=== PATIENT | male | born 1960 | race African-American/Black ===

== ENCOUNTER 2016-07-22 12:18 | Emergency (ER) | payer MEDICAID ==
[~2016-07-22] VITALS: Ht 182.9 cm; Wt 91.0 kg
[2016-07-22] MEDS ORDERED: SODIUM CHLORIDE 0.9% 1,000 ML IV ONE (14:21)
[2016-07-22] MEDS ORDERED: ONDANSETRON HCL 4MG/2ML VIAL IV STA (14:21)
[2016-07-22] MEDS ORDERED: MORPHINE SULFATE 4 MG/ML CPJ (NOT FOR IM USE) IV STA (14:21)
[2016-07-22 14:58] LABS: PROTHROMBIN TIME 10.8 sec
[2016-07-22 15:02] LABS: BASOPHILS % 0.2 % (0.0-2.0); EOSINOPHILS % 3.1 % (0.0-5.0); HEMATOCRIT. 43.9 % (42.0-52.0); LYMPHOCYTES % 41.4 % (20.0-50.0); MEAN CORPUSCULAR VOLUME 87.5 fL (80.0-94.0); MEAN PLATELET VOLUME 8.8 fl (7.4-10.4); MONOCYTES % 9.2 % (2.0-8.0); NEUTROPHILS % 46.1 % (40.0-76.0); PLATELET 198 x1000/uL (130-400); RED BLOOD CELL COUNT 5.01 mill/uL (4.7-6.1); RED CELL DISTRIBUTION WIDTH 13.1 % (11.6-14.6)
[2016-07-22 15:08] LABS: CARBON DIOXIDE 27 mEq/L (21-32); CHLORIDE 104 mEq/L (98-107); CREATINE KINASE 120 IU/L (39-308); ETHANOL BLOOD < 10 mg/dL; TROPONIN I < 0.02 ng/mL (0.00-0.04)
[2016-07-22 15:33] LABS: CLARITY URINE CLEAR (CLEAR); COLOR URINE YELLOW (YELLOW); GLUCOSE URINE NEGATIVE (NEGATIVE); KETONES URINE NEGATIVE (NEGATIVE); LEUKOCYTE ESTERASE URINE NEGATIVE (NEGATIVE); NITRITE URINE NEGATIVE (NEGATIVE); OCCULT BLOOD URINE NEGATIVE (NEGATIVE); PH URINE 6.5 (4.5-8.0); PROTEIN URINE NEGATIVE (NEGATIVE); SPECIFIC GRAVITY URINE 1.024 (1.005-1.030)
[2016-07-22 15:47] LABS: *AMPHETAMINES SCREEN URINE NEGATIVE (NEGATIVE); *BARBITURATES SCREEN URINE NEGATIVE (NEGATIVE); *BENZODIAZEPINES SCREEN URINE NEGATIVE (NEGATIVE); *COCAINE SCREEN URINE NEGATIVE (NEGATIVE); CANNABINOID URINE SCREEN NEGATIVE (NEGATIVE); METHADONE URINE SCREEN NEGATIVE (NEGATIVE); OPIATES URINE SCREEN NEGATIVE (NEGATIVE); PHENCYCLIDINE URINE SCREEN NEGATIVE (NEGATIVE)
[2016-07-22] MEDS ORDERED: KETOROLAC 30MG/ML VIAL IV ONE (16:15)
[2016-07-22 16:56] VITALS: BP 127/78
== END 2016-07-22 16:57 | disposition home or self-care (01) ==
LOC: ER 12:24
DX: S16.1XXA Strain of muscle, fascia and tendon at neck level, initial encounter (principal); R56.9 Unspecified convulsions; I10 Essential (primary) hypertension; Z02.89 Encounter for other administrative examinations; Z86.73 Personal history of transient ischemic attack (TIA), and cerebral infarction without residual deficits; X58.XXXA Exposure to other specified factors, initial encounter; Y93.89 Activity, other specified; Y92.89 Other specified places as the place of occurrence of the external cause; Y99.8 Other external cause status
CPT/HCPCS: 36415; 70450; 71010; 72125; 73030; 80053; 80305; 81003; 82550; 84484; 85025; 85610; 93005; 96361; 96374; 96375; 99285; G0482; J2270; J2405; J7030; Z7610

== ENCOUNTER 2017-05-29 12:02 | Emergency (ER) | payer MEDICAID ==
[~2017-05-29] VITALS: Ht 177.8 cm; Wt 80.0 kg
[2017-05-29] MEDS ORDERED: SODIUM CHLORIDE 0.9% 1,000 ML IV ONE (12:43)
[2017-05-29] MEDS ORDERED: LORAZEPAM 2MG/ML CPJ IV STA (12:43)
[2017-05-29 13:27] LABS: CLARITY URINE CLEAR (CLEAR); COLOR URINE YELLOW (YELLOW); KETONES URINE 1+ (NEGATIVE); LEUKOCYTE ESTERASE URINE NEGATIVE (NEGATIVE); NITRITE URINE NEGATIVE (NEGATIVE); OCCULT BLOOD URINE NEGATIVE (NEGATIVE); PROTEIN URINE NEGATIVE (NEGATIVE); SPECIFIC GRAVITY URINE 1.027 (1.005-1.030)
[2017-05-29 13:40] LABS: *AMPHETAMINES SCREEN URINE PRESUMTIVE POSITIVE (NEGATIVE); *BARBITURATES SCREEN URINE NEGATIVE (NEGATIVE); *BENZODIAZEPINES SCREEN URINE NEGATIVE (NEGATIVE)
[2017-05-29 13:41] LABS: *COCAINE SCREEN URINE PRESUMTIVE POSITIVE (NEGATIVE); CANNABINOID URINE SCREEN PRESUMTIVE POSITIVE (NEGATIVE); METHADONE URINE SCREEN NEGATIVE (NEGATIVE); OPIATES URINE SCREEN NEGATIVE (NEGATIVE); PHENCYCLIDINE URINE SCREEN NEGATIVE (NEGATIVE)
[2017-05-29 14:55] LABS: BASOPHILS % 0.8 % (0.0-2.0); EOSINOPHILS % 1.9 % (0.0-5.0); HEMATOCRIT. 42.4 % (42.0-52.0); HEMOGLOBIN. 14.6 g/dL (14.0-18.0); LYMPHOCYTES % 44.1 % (20.0-50.0); MEAN CORPUSCULAR HEMOGLOBIN 30.7 pg (28.0-32.0); MEAN PLATELET VOLUME 8.3 fl (7.4-10.4); MONOCYTES % 10.1 % (2.0-8.0); NEUTROPHILS % 43.1 % (40.0-76.0); PLATELET 195 x1000/uL (130-400); RED BLOOD CELL COUNT 4.77 mill/uL (4.7-6.1); RED CELL DISTRIBUTION WIDTH 13.4 % (11.6-14.6)
[2017-05-29 14:57] LABS: CHLORIDE 107 mEq/L (98-107)
[2017-05-29 15:01] LABS: ETHANOL BLOOD < 10 mg/dL
[2017-05-30 12:59] VITALS: BP 102/60
== END 2017-05-30 13:40 | disposition home or self-care (01) ==
LOC: ER 12:02
DX: F15.10 Other stimulant abuse, uncomplicated (principal); F22 Delusional disorders; F14.10 Cocaine abuse, uncomplicated; F12.10 Cannabis abuse, uncomplicated; I10 Essential (primary) hypertension; R45.851 Suicidal ideations; M19.90 Unspecified osteoarthritis, unspecified site; F17.200 Nicotine dependence, unspecified, uncomplicated; R00.0 Tachycardia, unspecified; Z86.73 Personal history of transient ischemic attack (TIA), and cerebral infarction without residual deficits; Z59.0 Homelessness
CPT/HCPCS: 36415; 80053; 80305; 81003; 85025; 96361; 96374; 99284; G0482; J2060; J7030; Z7610

== ENCOUNTER 2017-06-11 16:43 | Emergency (ER) | payer MEDICAID ==
[~2017-06-11] VITALS: Ht 175.3 cm; Wt 70.0 kg
[2017-06-11 19:51] LABS: BASOPHILS % 1.3 % (0.0-2.0); EOSINOPHILS % 2.2 % (0.0-5.0); HEMATOCRIT. 42.1 % (42.0-52.0); HEMOGLOBIN. 14.2 g/dL (14.0-18.0); LYMPHOCYTES % 55.8 % (20.0-50.0); MEAN CORPUSCULAR HEMOGLOBIN 30.4 pg (28.0-32.0); MEAN CORPUSCULAR VOLUME 89.9 fL (80.0-94.0); MEAN PLATELET VOLUME 8.5 fl (7.4-10.4); MONOCYTES % 10.1 % (2.0-8.0); NEUTROPHILS % 30.6 % (40.0-76.0); PLATELET 201 x1000/uL (130-400); RED BLOOD CELL COUNT 4.68 mill/uL (4.7-6.1)
[2017-06-11 20:00] LABS: CHLORIDE 104 mEq/L (98-107)
[2017-06-11 22:20] LABS: ETHANOL BLOOD < 10 mg/dL
[2017-06-11 23:28] LABS: CLARITY URINE CLEAR (CLEAR); COLOR URINE DARK YELLOW (YELLOW); KETONES URINE 1+ (NEGATIVE); LEUKOCYTE ESTERASE URINE NEGATIVE (NEGATIVE); NITRITE URINE NEGATIVE (NEGATIVE); OCCULT BLOOD URINE NEGATIVE (NEGATIVE); PH URINE 5.5 (4.5-8.0); PROTEIN URINE TRACE (NEGATIVE); SPECIFIC GRAVITY URINE 1.033 (1.005-1.030)
[2017-06-11 23:58] LABS: *AMPHETAMINES SCREEN URINE PRESUMTIVE POSITIVE (NEGATIVE); *BARBITURATES SCREEN URINE NEGATIVE (NEGATIVE); *BENZODIAZEPINES SCREEN URINE NEGATIVE (NEGATIVE); *COCAINE SCREEN URINE NEGATIVE (NEGATIVE); CANNABINOID URINE SCREEN PRESUMTIVE POSITIVE (NEGATIVE); METHADONE URINE SCREEN NEGATIVE (NEGATIVE); PHENCYCLIDINE URINE SCREEN NEGATIVE (NEGATIVE)
[2017-06-12 00:25] LABS: OPIATES URINE SCREEN NEGATIVE (NEGATIVE)
[2017-06-12] MEDS ORDERED: POTASSIUM CHLORIDE 20MEQ TABLET SR PO ONE (00:45)
[2017-06-12 12:32] VITALS: BP 121/70
== END 2017-06-12 12:33 | disposition home or self-care (01) ==
LOC: ER 16:56
DX: R44.1 Visual hallucinations (principal); R44.0 Auditory hallucinations; E87.6 Hypokalemia; F12.90 Cannabis use, unspecified, uncomplicated; I10 Essential (primary) hypertension; Z86.73 Personal history of transient ischemic attack (TIA), and cerebral infarction without residual deficits
CPT/HCPCS: 36415; 80053; 80305; 80307; 80329; 81003; 85025; 99284; G0482

== ENCOUNTER 2017-06-13 03:39 | Emergency (ER) | payer MEDICAID ==
[~2017-06-13] VITALS: Ht 175.3 cm; Wt 93.6 kg
[2017-06-13] MEDS ORDERED: IBUPROFEN 600MG TABLET PO ONE (06:45)
[2017-06-13 07:05] LABS: BASOPHILS % 0.4 % (0.0-2.0); EOSINOPHILS % 5.6 % (0.0-5.0); HEMATOCRIT. 44.1 % (42.0-52.0); HEMOGLOBIN. 15.3 g/dL (14.0-18.0); LYMPHOCYTES % 55.1 % (20.0-50.0); MEAN CORPUSCULAR HEMOGLOBIN 31.4 pg (28.0-32.0); MEAN CORPUSCULAR VOLUME 90.5 fL (80.0-94.0); MEAN PLATELET VOLUME 8.7 fl (7.4-10.4); MONOCYTES % 11.9 % (2.0-8.0); PLATELET 206 x1000/uL (130-400); RED BLOOD CELL COUNT 4.87 mill/uL (4.7-6.1); RED CELL DISTRIBUTION WIDTH 13.5 % (11.6-14.6)
[2017-06-13 07:11] LABS: CHLORIDE 106 mEq/L (98-107)
[2017-06-13 07:15] LABS: ETHANOL BLOOD < 10 mg/dL
[2017-06-13 08:25] VITALS: BP 116/78
== END 2017-06-13 08:28 | disposition home or self-care (01) ==
LOC: ER 03:39
DX: R56.9 Unspecified convulsions (principal); F17.200 Nicotine dependence, unspecified, uncomplicated; M19.90 Unspecified osteoarthritis, unspecified site
CPT/HCPCS: 36415; 73130; 80053; 85025; 99285; G0482; Z7610

== ENCOUNTER → 2021-01-18 | Emergency (ER) | payer MEDICAID, OTHER ==
[~2021-01-18] VITALS: Ht 182.9 cm; Wt 100.0 kg
[2021-01-18 13:23] LABS: CLARITY URINE CLEAR (CLEAR); COLOR URINE YELLOW (YELLOW); KETONES URINE NEGATIVE (NEGATIVE); LEUKOCYTE ESTERASE URINE NEGATIVE (NEGATIVE); NITRITE URINE NEGATIVE (NEGATIVE); OCCULT BLOOD URINE NEGATIVE (NEGATIVE); PH URINE 5.5 (4.5-8.0); PROTEIN URINE NEGATIVE (NEGATIVE); SPECIFIC GRAVITY URINE 1.026 (1.005-1.030)
[2021-01-18 13:33] LABS: *BARBITURATES SCREEN URINE NEGATIVE (NEGATIVE); *BENZODIAZEPINES SCREEN URINE NEGATIVE (NEGATIVE); *COCAINE SCREEN URINE NEGATIVE (NEGATIVE)
[2021-01-18 13:34] LABS: *AMPHETAMINES SCREEN URINE PRESUMTIVE POSITIVE (NEGATIVE); METHADONE URINE SCREEN NEGATIVE (NEGATIVE); OPIATES URINE SCREEN NEGATIVE (NEGATIVE)
[2021-01-18 13:35] LABS: CANNABINOID URINE SCREEN PRESUMTIVE POSITIVE (NEGATIVE); PHENCYCLIDINE URINE SCREEN PRESUMTIVE POSITIVE (NEGATIVE)
[2021-01-18 14:30] LABS: BASOPHILS % 0.8 % (0.0-2.0); EOSINOPHILS % 1.9 % (0.0-5.0); HEMATOCRIT. 48.1 % (42.0-52.0); HEMOGLOBIN. 15.9 g/dL (14.0-18.0); LYMPHOCYTES % 42.8 % (20.0-50.0); MEAN CORPUSCULAR HEMOGLOBIN 29.1 pg (28.0-32.0); MEAN CORPUSCULAR VOLUME 88.4 fL (80.0-94.0); MEAN PLATELET VOLUME 8.5 fl (7.4-10.4); MONOCYTES % 9.6 % (2.0-8.0); NEUTROPHILS % 44.9 % (40.0-76.0); PLATELET 245 x1000/uL (130-400); RED BLOOD CELL COUNT 5.44 mill/uL (4.7-6.1); RED CELL DISTRIBUTION WIDTH 12.9 % (11.6-14.6)
[2021-01-18 14:36] LABS: CHLORIDE 101 mEq/L (98-107)
[2021-01-18 14:40] LABS: ETHANOL BLOOD < 10 mg/dL
[2021-01-18 16:18] VITALS: BP 144/80
== END ==
LOC: ER 12:08
DX: T43.621A Poisoning by amphetamines, accidental (unintentional), initial encounter (principal); Y92.89 Other specified places as the place of occurrence of the external cause; F12.10 Cannabis abuse, uncomplicated
CPT/HCPCS: 36415; 80053; 80305; 80307; 80320; 80329; 81003; 85025; 99283; G0480

== ENCOUNTER 2021-05-31 12:18 | Emergency (ER) | payer OTHER ==
[~2021-05-31] VITALS: Ht 175.3 cm; Wt 94.0 kg
[2021-05-31] MEDS ORDERED: PREDNISONE 20MG TABLET PO ONE (12:45)
[2021-05-31] MEDS ORDERED: PENICILLIN G BENZATHINE 2,400,000 UNITS/4ML SYR IM ONE (12:45)
[2021-05-31] MEDS ORDERED: DIPHENHYDRAMINE 25MG CAPSULE PO ONE (12:45)
[2021-05-31] MEDS ORDERED: P20 MT (12:54)
[2021-05-31] MEDS ORDERED: DIPH25CA83 MT (12:54)
[2021-05-31 13:40] VITALS: BP 132/86
== END 2021-05-31 22:46 | disposition home or self-care (01) ==
LOC: ER 12:27
DX: R21 Rash and other nonspecific skin eruption (principal); F12.10 Cannabis abuse, uncomplicated; F15.10 Other stimulant abuse, uncomplicated
CPT/HCPCS: 96372; 99283; J0561; J7512; Q0163

== ENCOUNTER 2021-08-25 19:57 | Emergency (ER) | payer OTHER ==
[~2021-08-25] VITALS: Ht 175.3 cm; Wt 96.0 kg
[~2021-08-25 19:57] MED LIST: DIPH25CA83 MT; P20 MT
[2021-08-25 20:07] VITALS: BP 125/90
== END 2021-08-25 22:23 | disposition home or self-care (01) ==
LOC: ER 19:57
DX: Z20.822 Contact with and (suspected) exposure to COVID-19 (principal); F12.10 Cannabis abuse, uncomplicated; F15.10 Other stimulant abuse, uncomplicated; F16.129 Hallucinogen abuse with intoxication, unspecified; Z98.890 Other specified postprocedural states
CPT/HCPCS: 87426; 87804; 93005; 99284

== ENCOUNTER 2022-08-28 18:49 | Emergency (ER) | payer MEDICAID, OTHER ==
[~2022-08-28] VITALS: Ht 175.3 cm; Wt 88.0 kg
[2022-08-28 18:51] VITALS: BP 143/81; PULSE 99; RESP 18; TEMP 98.3; O2SAT 98
== END 2022-08-28 23:47 | disposition left against medical advice (07) ==
LOC: ER 18:49
DX: Z53.21 Procedure and treatment not carried out due to patient leaving prior to being seen by health care provider (principal)
CPT/HCPCS: 99281

== ENCOUNTER 2022-10-04 02:40 | Emergency (ER) | payer OTHER ==
[~2022-10-04] VITALS: Ht 175.3 cm; Wt 92.1 kg
[2022-10-04 02:45] VITALS: O2SAT 100
[2022-10-04] MEDS ORDERED: KETOROLAC 30MG/ML VIAL IV STA (04:20)
[2022-10-04] MEDS ORDERED: VANCOMYCIN 1G PREMIX 200 ML IV ONE (04:30)
[2022-10-04] MEDS ORDERED: PIPERACILLIN/TAZ 3.375G PREMIX 50 ML IV ONE (04:30)
[2022-10-04 04:41] LABS: BASOPHILS % 0.7 % (0.0-2.0); EOSINOPHILS % 5.4 % (0.0-5.0); HEMATOCRIT. 42.1 % (42.0-52.0); LYMPHOCYTES % 32.2 % (20.0-50.0); MEAN CORPUSCULAR HEMOGLOBIN 30.3 pg (28.0-32.0); MEAN CORPUSCULAR HGB CONC 33.2 g/dL (31.0-37.0); MEAN CORPUSCULAR VOLUME 91.2 fL (80.0-94.0); MEAN PLATELET VOLUME 7.8 fl (7.4-10.4); MONOCYTES % 12.2 % (2.0-8.0); NEUTROPHILS % 49.5 % (40.0-76.0); PLATELET 260 x1000/uL (130-400); RED BLOOD CELL COUNT 4.62 mill/uL (4.7-6.1); RED CELL DISTRIBUTION WIDTH 13.5 % (11.6-14.6); WHITE BLOOD COUNT 5.9 x1000/uL (4.5-11.0)
[2022-10-04 04:45] VITALS: BP 131/81; PULSE 78; RESP 18; TEMP 98
[2022-10-04 04:50] LABS: CALCIUM 8.4 mg/dL (8.5-10.1); CHLORIDE 108 mEq/L (98-107); INDEX HEMOLYSI 1 (1-3); INDEX ICTERIC 1 (1-4); INDEX LIPEMIC 1 (1-3); POTASSIUM 3.8 mEq/L (3.5-5.1); SODIUM 136 mEq/L (136-145)
[2022-10-04 04:54] LABS: CARBON DIOXIDE 25 mEq/L (21-32); CREATININE 0.9 mg/dL (0.6-1.3); GLUCOSE 104 mg/dL (70-105); UREA NITROGEN BLOOD 9 mg/dL (7-21)
[2022-10-04] MEDS ORDERED: IBUP-2029 MT (05:40)
[2022-10-04] MEDS ORDERED: AMOX1TAB16 MT (05:40)
== END 2022-10-04 06:59 | disposition home or self-care (01) ==
LOC: ER 02:48
DX: L03.012 Cellulitis of left finger (principal); F15.10 Other stimulant abuse, uncomplicated; F12.10 Cannabis abuse, uncomplicated; F16.10 Hallucinogen abuse, uncomplicated; I10 Essential (primary) hypertension
CPT/HCPCS: 99284; 96365; 96367; 96375; 80048; 83605; 85025; 87040; 36415; 73130; J1885; J2543; J3370

== ENCOUNTER 2022-12-06 20:47 | Emergency (ER) | payer OTHER ==
[~2022-12-06] VITALS: Ht 175.3 cm; Wt 96.0 kg
[~2022-12-06 20:47] MED LIST changes: +AMOX1TAB16 MT; +IBUP-2029 MT
[2022-12-06 21:34] VITALS: BP 121/70; O2SAT 100
[2022-12-06] MEDS ORDERED: CEPH500T MT (23:36)
[2022-12-06] MEDS ORDERED: CETI10CA11 MT (23:36)
[2022-12-06] MEDS ORDERED: HYDR453.4 TP (23:36)
[2022-12-07 00:19] VITALS: PULSE 81; RESP 18; TEMP 98.1
== END 2022-12-07 00:20 | disposition home or self-care (01) ==
LOC: ER 20:47
DX: L30.9 Dermatitis, unspecified (principal); L03.116 Cellulitis of left lower limb; L03.115 Cellulitis of right lower limb; I10 Essential (primary) hypertension; F12.10 Cannabis abuse, uncomplicated; F15.10 Other stimulant abuse, uncomplicated; Z79.899 Other long term (current) drug therapy
CPT/HCPCS: 99283

== ENCOUNTER 2023-03-08 18:32 | Emergency (ER) | payer OTHER ==
[~2023-03-08] VITALS: Ht 175.3 cm; Wt 68.0 kg
[~2023-03-08 18:32] MED LIST changes: +AMLO10TA80 MT; +ASCO500C15 MT; +CEPH500T MT; +CETI10CA11 MT; +FERR324T4 MT; +HYDR453.4 TP; +KEPP500 MT; -P20 MT; +QUET50TA23 MT
[2023-03-08 18:35] VITALS: BP 110/64; PULSE 89; RESP 16; TEMP 97.4; O2SAT 98
[2023-03-08] MEDS ORDERED: SODIUM CHLORIDE 0.9% 1,000 ML IV ONE (20:15)
[2023-03-08] MEDS ORDERED: ACET-2708 MT (22:43)
[2023-03-08] MEDS ORDERED: LIDOCAINE 5% PATCH TOP ONE (22:45)
[2023-03-08] MEDS ORDERED: ACETAMINOPHEN 325MG TABLET PO ONE (22:45)
== END 2023-03-08 23:01 | disposition home or self-care (01) ==
LOC: ER 18:32
DX: M54.2 Cervicalgia (principal); M54.50 Low back pain, unspecified; F12.90 Cannabis use, unspecified, uncomplicated; F15.90 Other stimulant use, unspecified, uncomplicated
CPT/HCPCS: 99283; 71045; J7030

== ENCOUNTER 2023-03-09 13:43 | Emergency (ER) | payer OTHER ==
[~2023-03-09] VITALS: Ht 175.3 cm; Wt 54.4 kg
[~2023-03-09 13:43] MED LIST changes: +ACET-2708 MT
[2023-03-09 14:02] VITALS: BP 188/66; PULSE 106; RESP 16; TEMP 98.2; O2SAT 100
[2023-03-09] MEDS ORDERED: AZITHROMYCIN 500MG/250ML 250 ML IV ONE (17:30)
[2023-03-09] MEDS ORDERED: SODIUM CHLORIDE 0.9% 1000ML BAG (SEPSIS BOLUS) IV ONE (17:30)
[2023-03-09] MEDS ORDERED: CEFTRIAXONE 1GM PREMIX 50 ML IV ONE (17:30)
[2023-03-09] MEDS ORDERED: HYDROCODONE/ACETAMINOPHEN 5/325MG TABLET PO ONE (17:30)
[2023-03-09 18:14] LABS: BASOPHILS % 0.5 % (0.0-2.0); EOSINOPHILS % 0.2 % (0.0-5.0); HEMATOCRIT. 37.2 % (42.0-52.0); HEMOGLOBIN. 12.1 g/dL (14.0-18.0); MEAN CORPUSCULAR HEMOGLOBIN 28.9 pg (28.0-32.0); MEAN CORPUSCULAR HGB CONC 32.5 g/dL (31.0-37.0); MEAN CORPUSCULAR VOLUME 88.8 fL (80.0-94.0); MEAN PLATELET VOLUME 7.4 fl (7.4-10.4); MONOCYTES % 12.2 % (2.0-8.0); NEUTROPHILS % 44.1 % (40.0-76.0); PLATELET 370 x1000/uL (130-400); RED BLOOD CELL COUNT 4.19 mill/uL (4.7-6.1); RED CELL DISTRIBUTION WIDTH 13.9 % (11.6-14.6); WHITE BLOOD COUNT 8.4 x1000/uL (4.5-11.0)
[2023-03-09 18:26] LABS: ALANINE AMINOTRANSFERASE 121 IU/L (10-49); ALBUMIN 3.6 g/dL (3.2-4.8); ASPARTATE AMINOTRANSFERASE 89 IU/L (<34); BILIRUBIN TOTAL 0.9 mg/dL (0.1-1.0); CALCIUM 9.2 mg/dL (8.7-10.4); CARBON DIOXIDE 29 mEq/L (21-32); CHLORIDE 100 mEq/L (98-107); CREATININE 0.8 mg/dL (0.6-1.3); GLUCOSE 107 mg/dL (70-105); POTASSIUM 4.1 mEq/L (3.5-5.1); PROTEIN TOTAL 8.1 g/dL (6.0-8.3); SODIUM 135 mEq/L (136-145); TROPONIN I HIGH SENSITIVITY 5 ng/L (3.0-53); UREA NITROGEN BLOOD 19 mg/dL (9-23)
== END 2023-03-09 18:24 | disposition left against medical advice (07) ==
LOC: ER 13:43
DX: R91.8 Other nonspecific abnormal finding of lung field (principal); G89.29 Other chronic pain; M54.9 Dorsalgia, unspecified; Z79.899 Other long term (current) drug therapy
CPT/HCPCS: 99284; 71045; 80053; 83880; 83605; 85025; 87040; 84484; 36415; 84145; J7030

== ENCOUNTER 2023-03-12 06:44 | Emergency (ER) | payer OTHER ==
[~2023-03-12] VITALS: Ht 175.3 cm; Wt 65.0 kg
[2023-03-12 06:46] VITALS: O2SAT 95
[2023-03-12] MEDS ORDERED: PREDNISONE 20MG TABLET PO STA (06:57)
[2023-03-12 07:29] LABS: BASOPHILS % 0.6 % (0.0-2.0); EOSINOPHILS % 0.2 % (0.0-5.0); HEMATOCRIT. 36.4 % (42.0-52.0); HEMOGLOBIN. 11.7 g/dL (14.0-18.0); LYMPHOCYTES % 36.8 % (20.0-50.0); MEAN CORPUSCULAR HEMOGLOBIN 28.4 pg (28.0-32.0); MEAN CORPUSCULAR HGB CONC 32.2 g/dL (31.0-37.0); MEAN CORPUSCULAR VOLUME 88.3 fL (80.0-94.0); MEAN PLATELET VOLUME 7.1 fl (7.4-10.4); MONOCYTES % 11.5 % (2.0-8.0); NEUTROPHILS % 50.9 % (40.0-76.0); PLATELET 459 x1000/uL (130-400); RED BLOOD CELL COUNT 4.12 mill/uL (4.7-6.1); RED CELL DISTRIBUTION WIDTH 13.9 % (11.6-14.6); WHITE BLOOD COUNT 8.4 x1000/uL (4.5-11.0)
[2023-03-12 07:43] LABS: ALANINE AMINOTRANSFERASE 83 IU/L (10-49); ALBUMIN 3.5 g/dL (3.2-4.8); ASPARTATE AMINOTRANSFERASE 77 IU/L (<34); CALCIUM 9.1 mg/dL (8.7-10.4); CARBON DIOXIDE 27 mEq/L (21-32); CHLORIDE 98 mEq/L (98-107); CREATININE 0.8 mg/dL (0.6-1.3); GLUCOSE 158 mg/dL (70-105); PROTEIN TOTAL 7.9 g/dL (6.0-8.3); SODIUM 134 mEq/L (136-145); TROPONIN I HIGH SENSITIVITY 4 ng/L (3.0-53); UREA NITROGEN BLOOD 15 mg/dL (9-23)
[2023-03-12] MEDS ORDERED: LEVO750T68 MT (08:24)
[2023-03-12] MEDS ORDERED: KETOROLAC 30MG/ML VIAL IV ONE (08:30)
[2023-03-12] MEDS ORDERED: LEVOFLOXACIN 750MG PREMIX 150 ML IV ONE (08:30)
[2023-03-12 09:31] VITALS: BP 167/63; PULSE 98; RESP 19; TEMP 98.1
== END 2023-03-12 09:45 | disposition home or self-care (01) ==
LOC: ER 06:54
DX: J18.9 Pneumonia, unspecified organism (principal); R06.00 Dyspnea, unspecified; F12.10 Cannabis abuse, uncomplicated; F15.10 Other stimulant abuse, uncomplicated; F16.10 Hallucinogen abuse, uncomplicated; Z79.899 Other long term (current) drug therapy
CPT/HCPCS: 80053; 83880; 85025; 84484; 36415; 71045; 93005; 96374; 96375; 99291; J7512; J1885; J1956; Z7610 ×3

== ENCOUNTER 2023-03-12 22:37 | Emergency (ER) | payer OTHER ==
[~2023-03-12] VITALS: Ht 182.9 cm; Wt 95.0 kg
[~2023-03-12 22:37] MED LIST changes: +LEVO750T68 MT
[2023-03-12 22:46] VITALS: O2SAT 100
[2023-03-12] MEDS ORDERED: CEFTRIAXONE 2GM/50ML (ADDEASE) 50 ML IV ONE (23:15)
[2023-03-12] MEDS ORDERED: AZITHROMYCIN 500MG/250ML 250 ML IV ONE (23:15)
[2023-03-12 23:21] LABS: BASOPHILS % 0.2 % (0.0-2.0); HEMATOCRIT. 34.5 % (42.0-52.0); HEMOGLOBIN. 11.2 g/dL (14.0-18.0); LYMPHOCYTES % 32.7 % (20.0-50.0); MEAN CORPUSCULAR HEMOGLOBIN 28.7 pg (28.0-32.0); MEAN CORPUSCULAR HGB CONC 32.4 g/dL (31.0-37.0); MEAN CORPUSCULAR VOLUME 88.6 fL (80.0-94.0); MEAN PLATELET VOLUME 7.2 fl (7.4-10.4); MONOCYTES % 8.5 % (2.0-8.0); NEUTROPHILS % 58.6 % (40.0-76.0); PLATELET 453 x1000/uL (130-400); RED BLOOD CELL COUNT 3.89 mill/uL (4.7-6.1); RED CELL DISTRIBUTION WIDTH 13.9 % (11.6-14.6); WHITE BLOOD COUNT 6.6 x1000/uL (4.5-11.0)
[2023-03-12 23:37] LABS: ALANINE AMINOTRANSFERASE 74 IU/L (10-49); ALBUMIN 3.2 g/dL (3.2-4.8); ASPARTATE AMINOTRANSFERASE 61 IU/L (<34); BILIRUBIN TOTAL 0.6 mg/dL (0.1-1.0); CALCIUM 8.6 mg/dL (8.7-10.4); CARBON DIOXIDE 22 mEq/L (21-32); CHLORIDE 101 mEq/L (98-107); CREATININE 0.9 mg/dL (0.6-1.3); GLUCOSE 231 mg/dL (70-105); POTASSIUM 4.2 mEq/L (3.5-5.1); PROTEIN TOTAL 7.5 g/dL (6.0-8.3); SODIUM 134 mEq/L (136-145); UREA NITROGEN BLOOD 25 mg/dL (9-23)
[2023-03-13] MEDS ORDERED: ACETAMINOPHEN 325MG TABLET PO STA (00:07)
[2023-03-13] MEDS ORDERED: SODIUM CHLORIDE 0.9% 1000ML BAG (SEPSIS BOLUS) IV ONE (00:15)
[2023-03-13 02:30] VITALS: PULSE 87
[2023-03-13 02:48] LABS: CLARITY URINE CLEAR (CLEAR); COLOR URINE DARK YELLOW (YELLOW); GLUCOSE URINE NEGATIVE (NEGATIVE); KETONES URINE TRACE (NEGATIVE); LEUKOCYTE ESTERASE URINE NEGATIVE (NEGATIVE); NITRITE URINE NEGATIVE (NEGATIVE); OCCULT BLOOD URINE NEGATIVE (NEGATIVE); PROTEIN URINE 1+ (NEGATIVE); SPECIFIC GRAVITY URINE 1.031 (1.005-1.030)
[2023-03-13 03:47] LABS: BACTERIA URINE NONE SEEN; HYALINE CASTS URINE 0-5 /lpf; RBC URINE NONE SEEN /hpf (0-2); SQUAMOUS EPITHELIAL CELL URINE NONE SEEN /lpf (RARE/1+); WBC URINE 0-2 /hpf (0-2)
[2023-03-13 07:03] VITALS: BP 96/65; RESP 18; TEMP 98.6
== END 2023-03-13 07:25 | disposition short-term general hospital (02) ==
LOC: ER 22:37
DX: J18.8 Other pneumonia, unspecified organism (principal); E87.20 Acidosis, unspecified; E86.0 Dehydration; N17.9 Acute kidney failure, unspecified; R42 Dizziness and giddiness; F12.90 Cannabis use, unspecified, uncomplicated; F15.90 Other stimulant use, unspecified, uncomplicated; Z59.00 Homelessness unspecified; Z20.822 Contact with and (suspected) exposure to COVID-19
CPT/HCPCS: 80053; 80320; 83605 ×2; 85025; 87040; 36415; 96368; 96365; 99285; 81003; 87420; 87086; 87804 ×2; 96361; 87426; J0456; J0696; J7030; G0480

== ENCOUNTER 2023-03-18 05:39 | Emergency (ER) | payer OTHER ==
[~2023-03-18] VITALS: Ht 182.9 cm; Wt 79.0 kg
[2023-03-18] MEDS ORDERED: ACETAMINOPHEN 325MG TABLET PO ONE (05:45)
[2023-03-18 06:02] VITALS: BP 126/88; PULSE 82; RESP 18; TEMP 98.6; O2SAT 99
[2023-03-18] MEDS ORDERED: TOPUD PO (06:45)
[2023-03-19] MEDS ORDERED: NAPR-681 MT (13:42)
== END 2023-03-18 07:00 | disposition home or self-care (01) ==
LOC: ER 05:59
DX: S09.90XA Unspecified injury of head, initial encounter (principal); M54.50 Low back pain, unspecified; F12.10 Cannabis abuse, uncomplicated; F15.10 Other stimulant abuse, uncomplicated; F16.10 Hallucinogen abuse, uncomplicated; E11.9 Type 2 diabetes mellitus without complications; I10 Essential (primary) hypertension; Z79.899 Other long term (current) drug therapy; X58.XXXA Exposure to other specified factors, initial encounter; Y93.89 Activity, other specified; Y92.89 Other specified places as the place of occurrence of the external cause; Y99.8 Other external cause status
CPT/HCPCS: 99283

== ENCOUNTER 2023-03-18 12:51 | Emergency (ER) | payer OTHER ==
[~2023-03-18] VITALS: Ht 175.3 cm; Wt 69.0 kg
[~2023-03-18 12:51] MED LIST changes: +TOPUD PO
[2023-03-18 13:01] VITALS: PULSE 120
[2023-03-18 13:22] VITALS: BP 104/57; RESP 18; TEMP 98.9; O2SAT 97
[2023-03-19] MEDS ORDERED: NAPR-681 MT (13:42)
== END 2023-03-18 21:52 | disposition left against medical advice (07) ==
LOC: ER 12:51
DX: R51.9 Headache, unspecified (principal); Z53.21 Procedure and treatment not carried out due to patient leaving prior to being seen by health care provider
CPT/HCPCS: 99281

== ENCOUNTER 2023-03-19 09:22 | Emergency (ER) | payer OTHER ==
[~2023-03-19] VITALS: Ht 165.1 cm; Wt 80.0 kg
[2023-03-19 09:29] VITALS: O2SAT 99
[2023-03-19 10:15] VITALS: BP 113/64; PULSE 68; RESP 18; TEMP 96.9
[2023-03-19] MEDS ORDERED: ACETAMINOPHEN 325MG TABLET PO ONE (10:15)
[2023-03-19] MEDS ORDERED: KETOROLAC 60MG/2ML VIAL IM ONE (10:15)
[2023-03-19] MEDS ORDERED: NAPR-681 MT (13:42)
== END 2023-03-19 14:05 | disposition home or self-care (01) ==
LOC: ER 09:22
DX: M54.9 Dorsalgia, unspecified (principal); F12.10 Cannabis abuse, uncomplicated; F15.10 Other stimulant abuse, uncomplicated; F16.10 Hallucinogen abuse, uncomplicated
CPT/HCPCS: 99283; 72170; 96372; J1885

== ENCOUNTER 2023-04-07 13:38 | Emergency (ER) | payer OTHER ==
[~2023-04-07] VITALS: Ht 175.3 cm; Wt 69.0 kg
[~2023-04-07 13:38] MED LIST changes: +NAPR-681 MT
[2023-04-07 13:45] VITALS: O2SAT 98
[2023-04-07] MEDS: KETOROLAC 30MG/ML VIAL IV ONE (14:38)
[2023-04-07 15:03] LABS: BASOPHILS % 0.8 % (0.0-2.0); EOSINOPHILS % 1.9 % (0.0-5.0); HEMATOCRIT. 35.2 % (42.0-52.0); HEMOGLOBIN. 11.8 g/dL (14.0-18.0); LYMPHOCYTES % 42.3 % (20.0-50.0); MEAN CORPUSCULAR HEMOGLOBIN 28.7 pg (28.0-32.0); MEAN CORPUSCULAR HGB CONC 33.5 g/dL (31.0-37.0); MEAN CORPUSCULAR VOLUME 85.8 fL (80.0-94.0); MONOCYTES % 11.5 % (2.0-8.0); NEUTROPHILS % 43.5 % (40.0-76.0); PLATELET 399 x1000/uL (130-400); RED CELL DISTRIBUTION WIDTH 16.3 % (11.6-14.6); WHITE BLOOD COUNT 6.7 x1000/uL (4.5-11.0)
[2023-04-07 15:10] LABS: ALANINE AMINOTRANSFERASE 80 IU/L (10-49); ALBUMIN 4.2 g/dL (3.2-4.8); ASPARTATE AMINOTRANSFERASE 108 IU/L (<34); BILIRUBIN TOTAL 0.6 mg/dL (0.1-1.0); CARBON DIOXIDE 26 mEq/L (21-32); CHLORIDE 103 mEq/L (98-107); CREATININE 0.9 mg/dL (0.6-1.3); GLUCOSE 97 mg/dL (70-105); POTASSIUM 3.8 mEq/L (3.5-5.1); PROTEIN TOTAL 8.7 g/dL (6.0-8.3); SODIUM 136 mEq/L (136-145); UREA NITROGEN BLOOD 11 mg/dL (9-23)
[2023-04-07 15:42] LABS: ERYTHROCYTE SEDIMENTATION RATE 80 mm/hr (0-20)
[2023-04-07] MEDS ORDERED: IOHEXOL-300 100 ML BOTTLE ONE (19:42)
[2023-04-07] MEDS: PIPERACILLIN/TAZO 3.375G/50ML 50 ML IV NR (21:20)
[2023-04-07] MEDS: VANCOMYCIN 1G PREMIX 200 ML IV NR (21:37)
[2023-04-07] MEDS ORDERED: PIPERACILLIN/TAZO 3.375G/50ML 50 ML IV SCH (22:00)
[2023-04-08 00:58] VITALS: BP 118/70; PULSE 91; RESP 18; TEMP 98.2
[2023-04-08] MEDS ORDERED: PIPERACILLIN/TAZO 3.375G/50ML 50 ML IV SCH (06:00)
== END 2023-04-08 01:18 | disposition short-term general hospital (02) ==
LOC: ER 13:38
DX: M46.46 Discitis, unspecified, lumbar region (principal); M46.26 Osteomyelitis of vertebra, lumbar region; A18.01 Tuberculosis of spine; F12.10 Cannabis abuse, uncomplicated; F15.10 Other stimulant abuse, uncomplicated; Z79.899 Other long term (current) drug therapy
CPT/HCPCS: 80053; 83605; 85025; 85651; 87040; 36415; 72132; 96368; 96365; 96366; 96375; 99291; Q9967; J1885; J2543; J3370; Z7610 ×3

== ENCOUNTER 2023-08-29 16:23 | Emergency (ER) | payer OTHER ==
[~2023-08-29] VITALS: Ht 177.8 cm; Wt 90.0 kg
[2023-08-29 16:27] VITALS: BP 129/75; PULSE 83; RESP 20; TEMP 98.7; O2SAT 98
[2023-08-29] MEDS ORDERED: P50 MT (16:53)
[2023-08-29] MEDS ORDERED: TRIA60LO17 TP (16:53)
== END 2023-08-29 17:06 | disposition home or self-care (01) ==
LOC: ER 16:23
DX: R21 Rash and other nonspecific skin eruption (principal); Z79.899 Other long term (current) drug therapy; Z98.890 Other specified postprocedural states
CPT/HCPCS: 99283

== ENCOUNTER 2024-01-20 07:30 | Emergency (ER) | payer OTHER ==
[~2024-01-20] VITALS: Ht 175.3 cm; Wt 86.0 kg
[~2024-01-20 07:30] MED LIST changes: +ASCO500C14 MT; -ASCO500C15 MT; +P50 MT; +TRIA60LO17 TP
[2024-01-20 07:44] VITALS: O2SAT 100
[2024-01-20] MEDS ORDERED: MUPI15CR11 TP (08:24)
[2024-01-20] MEDS ORDERED: AMOX1TAB16 MT (08:24)
[2024-01-20 08:31] VITALS: BP 125/74; PULSE 77; RESP 16; TEMP 36.89184; O2SAT 100
[2024-01-20] MEDS: AMOXICILLIN/POTASSIUM CLAVULANATE 875/125MG TAB PO ONE (08:37)
== END 2024-01-20 08:53 | disposition home or self-care (01) ==
LOC: ER 07:30
DX: R21 Rash and other nonspecific skin eruption (principal); Z79.899 Other long term (current) drug therapy
CPT/HCPCS: 99283

== ENCOUNTER 2024-02-14 12:24 | Emergency (ER) | payer OTHER ==
[~2024-02-14] VITALS: Ht 175.3 cm; Wt 86.0 kg
[~2024-02-14 12:24] MED LIST changes: +MUPI15CR11 TP
[2024-02-14 12:56] VITALS: O2SAT 98
[2024-02-14] MEDS ORDERED: TRIA60LO17 TP (15:30)
[2024-02-14] MEDS ORDERED: HYDR453.3 TP (15:30)
[2024-02-14] MEDS: HYDROCORTISONE 1% OINT 28.35GM TOP STA (16:20)
[2024-02-14 16:21] VITALS: BP 137/78; PULSE 71; RESP 18; TEMP 37.05852; O2SAT 98
== END 2024-02-14 16:23 | disposition home or self-care (01) ==
LOC: ER 12:24
DX: L30.9 Dermatitis, unspecified (principal); Z76.0 Encounter for issue of repeat prescription; Z79.899 Other long term (current) drug therapy
CPT/HCPCS: 99282

== ENCOUNTER 2024-03-12 09:32 | Emergency (ER) | payer OTHER ==
[~2024-03-12] VITALS: Ht 175.3 cm; Wt 91.0 kg
[~2024-03-12 09:32] MED LIST changes: +HYDR453.3 TP
[2024-03-12 09:42] VITALS: BP 131/75; PULSE 95; RESP 16; TEMP 98.4; O2SAT 98
[2024-03-12] MEDS ORDERED: CEPH500T MT (10:43)
[2024-03-12] MEDS ORDERED: SULF1TAB48 MT (10:43)
[2024-03-12] MEDS: SULFAMETHOXAZOLE/TRIMETHOPRIM 800/160MG TABLET PO ONE (11:52)
[2024-03-12] MEDS: CEPHALEXIN 250MG CAPSULE PO ONE (11:52)
== END 2024-03-12 11:54 | disposition home or self-care (01) ==
LOC: ER 09:32
DX: L03.114 Cellulitis of left upper limb (principal); I10 Essential (primary) hypertension; Z79.899 Other long term (current) drug therapy
CPT/HCPCS: 99283

== ENCOUNTER 2024-04-29 15:18 | Emergency (ER) | payer OTHER ==
[~2024-04-29] VITALS: Ht 175.3 cm; Wt 91.0 kg
[~2024-04-29 15:18] MED LIST changes: +SULF1TAB48 MT
[2024-04-29 15:23] VITALS: O2SAT 99
[2024-04-29 15:31] VITALS: BP 127/71; PULSE 111; RESP 18; TEMP 36.6; O2SAT 99
[2024-04-29] MEDS ORDERED: HYDR453.3 TP (16:39)
== END 2024-04-29 16:51 | disposition home or self-care (01) ==
LOC: ER 15:23
DX: L30.9 Dermatitis, unspecified (principal); F19.90 Other psychoactive substance use, unspecified, uncomplicated; Z79.899 Other long term (current) drug therapy; Z98.890 Other specified postprocedural states
CPT/HCPCS: 99282

== ENCOUNTER 2024-07-27 09:44 | Emergency (ER) | payer OTHER ==
[~2024-07-27] VITALS: Ht 175.3 cm; Wt 95.0 kg
[2024-07-27 09:47] VITALS: O2SAT 99
[2024-07-27] MEDS: IBUPROFEN 400MG TABLET PO ONE (11:23)
[2024-07-27 11:54] VITALS: BP 138/65; PULSE 82; RESP 15; TEMP 36.9; O2SAT 100
== END 2024-07-27 11:55 | disposition home or self-care (01) ==
LOC: ER 10:02
DX: S80.02XA Contusion of left knee, initial encounter (principal); Z79.899 Other long term (current) drug therapy; Z98.890 Other specified postprocedural states; V09.20XA Pedestrian injured in traffic accident involving unspecified motor vehicles, initial encounter; Y93.89 Activity, other specified; Y92.89 Other specified places as the place of occurrence of the external cause; Y99.9 Unspecified external cause status
CPT/HCPCS: 99284; 73552; 73562; 73590; A6449